=== PATIENT | male | born 1955 | race Hispanic/Latino ===

== ENCOUNTER 2020-01-11 08:53 | Day surgery (SDC) | payer OTHER ==
[~2020-01-11 08:53] MED LIST: SODIUM CHLORIDE 0.9% 1000 ML 1,000 ML IV SCH
[2020-01-11] MEDS ORDERED: LIDOCAINE MPF (2%) 20 MG/1 ML VIAL 5 ML ONE (09:00)
--- NOTE | 2020-01-11 09:36 | Anesthesia Day of Surgery ---
Anesthesia Day of Surgery - Day of Surgery Patient Examined: Yes Patient H&P Reviewed: Yes Patient is NPO: Yes Beta Blockers: Yes Cardiac Clearance: Yes
--- NOTE | 2020-01-11 09:36 | Anesthesia Consultation ---
Anesthesia Consult and Med Hx Date of service: 01/11/20 - Airway Anesthetic Teeth Evaluation: Dentures ROM Head & Neck: Adequate Mental/Hyoid Distance: Adequate Mallampati Class: Class II Intubation Access Assessment: Probably Good - Pre-Operative Health Status ASA Pre-Surgery Classification: ASA3 Proposed Anesthetic Plan: MAC - Pulmonary Hx Smoking: Yes (1 PPD) Hx Asthma: No Hx Respiratory Symptoms: No SOB: No COPD: No Home Oxygen Therapy: No Hx Pneumonia: No Hx Sleep Apnea: Yes - Cardiovascular System Hx Hypertension: No Hx Coronary Artery Disease: Yes Hx Heart Attack/AMI: Yes Hx Angina: No Hx Percutaneous Transluminal Coronary Angioplasty (PTCA): Yes Hx Cardia Arrhythmia: Yes Hx Pacemaker: No Hx Internal Defibrillator: No Hx Valvular Heart Disease: No Hx Heart Murmur: No Hx Peripheral Vascular Disease: No - Central Nervous System Hx Neuromuscular Disorder: No Hx Seizures: No CVA: No Hx Back Pain: No Hx Psychiatric Problems: No - Gastrointestinal Hx Ulcer: No Hx Gastroesophageal Reflux Disease: No - Endocrine Hx Renal Disease: No Hx End Stage Renal Disease: No Hx Cirrhosis: No Hx Liver Disease: No Hx Insulin Dependent Diabetes: No Hx Non-Insulin Dependent Diabetes: No Hx Thyroid Disease: No Hx Hypothyroidism: No Hx Hyperthyroidism: No - Hematic Hx Anemia: No Hx Sickle Cell Disease: No - Other Systems Hx Alcohol Use: Yes (occ.) Hx Substance Use: No Hx Cancer: No Hx Obesity: No
[2020-01-11] MEDS ORDERED: propofoL 200 MG/20 ML VIAL IV ONE ×2 (10:06)
--- NOTE | 2020-01-11 10:26 | History and Physical Report ---
HISTORY OF PRESENT ILLNESS: This is a 64-year-old white male with underlying history of hypertension, hyperlipidemia, coronary artery disease, who gives a family history of colon cancer, the patient's brother had colon cancer. The patient's last colonoscopy was 11 years ago. He has been sent for a repeat colonoscopy to be done. Underlying history of hypertension, hyperlipidemia and coronary artery disease. MEDICATIONS: He normally takes include lisinopril, metoprolol, aspirin and atorvastatin. SOCIAL HISTORY: Admits to smoking and alcohol use. Does have cardiac issues. No flu shots. ALLERGIES: No known allergies. PHYSICAL EXAMINATION: VITAL SIGNS: He is afebrile, blood pressure 118/62, pulse is 57. Height is 5 feet 9 inches, weight is 160. HEENT: Shows no JVD. LUNGS: Clear to auscultation. CARDIOVASCULAR: Normal. ABDOMEN: Soft. Bowel sounds present. NEUROLOGIC: He is otherwise alert and oriented. ASSESSMENT: Colon polyp screening, past history of colon polyps, family history of cancer. The patient's brother had colon cancer, history of coronary artery disease, hypertension and hyperlipidemia. PLAN: The patient has got a cardiac clearance. Plan is to do a colonoscopy at [facility] today on 01/11/2020 and the patient has already used Suprep, sample of which had been given to him. JOB# [id number] ANUJ/VINI
--- NOTE | 2020-01-11 10:41 | Procedure Note ---
Date of procedure: 01/11/20 Pre-op diagnosis: Colon Polyp Screening/ F/H/O Colon Cancer (Brother Post-op diagnosis: other (No Colon Polyps noted/ Extensive and Deep, Left Diverticular Disease/ Moderate,Internal Hemorrhoids) Procedure: Colonoscopy Anesthesia: MAC Surgeon: JOSE HEREDIA Estimated blood loss: none Pathology: none Condition: stable Disposition: same day (Resume home medication and enxourage increase fiber intake and OTC Hemorrhoidal medication. follow up in 1 to2 weeks ([phone]).)
[2020-01-11] MEDS ORDERED: WATER FOR IRRIG STERILE 250 ML BOTTLE IR ONE (10:46)
--- NOTE | 2020-01-11 10:52 | Operative Report ---
PROCEDURE: Colonoscopy. INDICATIONS: This is a 64-year-old white male with a history of smoking, family history of cancer. The patient's brother had colon cancer. Last colonoscopy was a few years back. Repeat colonoscopy is to be done as part of colon polyp screening. DESCRIPTION OF PROCEDURE: Procedure was done after getting informed consent with MAC anesthesia. Initial rectal exam was unremarkable. Instrument was passed through the rectum onto the cecum, which was identified with ileocecal valve and the appendiceal orifice. Visualization was fair. Cecum was also examined on the retroverted view. No additional pathology was noted in the cecum. The cecum, ascending colon and transverse colon showed normal mucosa. There was moderate deep left colon diverticular disease noted throughout the left side of the colon and the rectum showed moderate internal hemorrhoid on the retroverted view. There was no bleeding associated with the procedure. No complications associated with the procedure. ASSESSMENT: Colon polyp screening, family history of cancer. The patient's brother has colon cancer. No colon polyps noted. Moderate left colon diverticular disease, moderate internal hemorrhoid. The patient will be encouraged to take fiber supplements. Resume home medication. Follow up in the office in 1-2 weeks' time. JOB# [id number] ANUJ/VINI
[2020-01-11 11:05] VITALS: BP 118/53
--- NOTE | 2020-01-11 11:45 | Post Anesthesia Evaluation ---
- Post Anesthesia Evaluation Patient Participated: Yes Airway Patent: Yes Stable Respiratory Function: Yes Nausea/Vomiting: No Temp > 96.8F: Yes Pain Manageable: Yes Adequeate Hydration: Yes Anesthesia Complications: No Block Receding Appropriately: Not Applicable Patient on Ventilator: No
== END 2020-01-11 08:54 | disposition home or self-care (01) ==
LOC: GIO 08:53
DX: Z12.11 Encounter for screening for malignant neoplasm of colon (principal); K64.8 Other hemorrhoids; K57.30 Diverticulosis of large intestine without perforation or abscess without bleeding; I10 Essential (primary) hypertension; E78.5 Hyperlipidemia, unspecified; I25.10 Atherosclerotic heart disease of native coronary artery without angina pectoris; F17.210 Nicotine dependence, cigarettes, uncomplicated; I42.9 Cardiomyopathy, unspecified; G47.30 Sleep apnea, unspecified; Z86.010 Personal history of colon polyps; Z80.0 Family history of malignant neoplasm of digestive organs; Z72.89 Other problems related to lifestyle; Z98.890 Other specified postprocedural states; Z79.82 Long term (current) use of aspirin; Z79.899 Other long term (current) drug therapy
CPT/HCPCS: 45378; J2704; J7030